=== PATIENT | male | born 1970 | race Caucasian/White ===

== ENCOUNTER 2021-08-15 09:19 | Outpatient (CLI) | payer OTHER | END 2021-08-15 20:01 | disposition home or self-care (01) | LOC: SMI 09:19 | PROVIDERS: ATTEND Orthopaedic Surgery | DX: M19.011 Primary osteoarthritis, right shoulder (principal); M89.311 Hypertrophy of bone, right shoulder; M25.511 Pain in right shoulder | CPT/HCPCS: 73221 ==